=== PATIENT | female | born 1960 | race Caucasian/White ===

== ENCOUNTER 2022-06-02 14:39 | Emergency (ER) | payer OTHER, BC, SELFPAY ==
[2022-06-02 14:42] VITALS: BP 148/100; PULSE 100; RESP 18; TEMP 36.4; O2SAT 98; BMI 34.3
--- NOTE | 2022-06-02 14:57 | CRLHL7_ITS ---
For Patients: As a result of the Cures Act, medical imaging exams and procedure reports are released immediately into your electronic medical record. You may view this report before your referring provider. If you have questions, please contact your health care provider. 3 VIEWS left rib detail and chest INDICATION: Injury. IMPRESSION: No displaced fractures or osseous lesions of the ribs are noted. Tiny nodular opacity left lung base. It could be a small calcified nodule likely benign. Included chest shows no pneumothorax. Lungs are clear. Normal heart size and pulmonary vascularity. Small pleural thickening in the right apex. Dictated by Ismael Redding MD @ 06/02/2022 3:30:45 PM (Electronically Signed)
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
== END 2022-06-02 15:50 | disposition home or self-care (01) ==
PROVIDERS: Emergency Provider Emergency Medicine Emergency Medical Services
DX: S20.212A Contusion of left front wall of thorax, initial encounter (principal); V43.52XA Car driver injured in collision with other type car in traffic accident, initial encounter
CPT/HCPCS: 71101; 99284

== ENCOUNTER 2022-06-10 08:36 | Emergency (ER) | payer OTHER, BC, SELFPAY ==
[2022-06-10 09:02] VITALS: BP 123/81; PULSE 77; RESP 16; TEMP 36.6; O2SAT 98; BMI 30.9
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
[2022-06-10 12:16] LABS: Bilirubin Urine Negative (Negative); Leukocyte Esterase Urine Trace (Negative); Nitrite Urine Positive (Negative); Specific Gravity Urine >= 1.030 (1.000-1.030); Urobilinogen Urine 0.2 (0.2-1.0); pH Urine 5.5 (5.0-8.5)
[2022-06-10 12:33] LABS: Basophils Percent Auto 0.5 % (0.0-3.0); Eosinophils Percent Auto 1.9 % (0.0-7.0); Hematocrit 45.1 % (33.0-51.0); Hemoglobin* 15.2 gm/dL (12.0-16.0); Immature Granulocytes Pct Auto 0.2 %; Mean Corpuscular HGB Conc 34 gm/dL (32-36); Mean Corpuscular Hemoglobin 27 pg (26-34); Mean Corpuscular Volume 81 fL (80-100); Monocytes Percent Auto 7.3 % (0.0-11.0); Neutrophils Percent Auto 56.1 % (42.0-72.0); Platelet Count* 169 K/uL (140-440); Red Blood Count 5.56 m/uL (4.00-5.20); Slide Review Reflex No; White Blood Count* 4.26 K/uL (4.50-11.00)
[2022-06-10 12:33] LABS: RBC Urine 0-2 (0-2)
[2022-06-10 12:34] LABS: Bacteria Urine Many
[2022-06-10 13:21] LABS: Chloride* 105 mmol/L (96-114)
[2022-06-10 13:22] LABS: Potassium* 3.8 mmol/L (3.6-5.1); Sodium* 139 mmol/L (135-149)
[2022-06-10 13:24] LABS: Creatinine* 0.4 mg/dL (0.5-1.5); Est. Creatinine Clearance* 51.02; Estimated Glomerular Filt Rate 113 ml/min
[2022-06-10 13:25] LABS: Blood Urea Nitrogen* 11 mg/dL (7-30); Calcium* 9.3 mg/dL (8.4-10.6); Carbon Dioxide* 27 mmol/L (20-32); Glucose* 200 mg/dL (60-115)
[2022-06-10 13:52] LABS: Appearance Urine Slightly Cloudy (Clear); Blood Urine Negative (Negative); Glucose Urine 1+ (Negative); Ketones Urine Trace (Negative); Protein Urine Negative (Negative)
[2022-06-10 13:54] LABS: Color Urine Yellow (Yellow)
== END 2022-06-10 16:01 | disposition home or self-care (01) ==
PROVIDERS: Emergency Provider Family Medicine
DX: R10.9 Unspecified abdominal pain (principal); R82.90 Unspecified abnormal findings in urine
CPT/HCPCS: 36415; 71260; 74177; 80048; 81001; 85025; 87086; 99284; Q9967